=== PATIENT | male | born 1960 | race African-American/Black ===

== ENCOUNTER 2018-10-19 22:47 | Emergency (ER) | payer SELFPAY ==
[~2018-10-19] VITALS: Ht 188 cm; Wt 96.0 kg
[2018-10-20] MEDS ORDERED: HYDROCODONE/ACETAMINOPHEN 5/325MG TABLET PO ONE (01:15)
[2018-10-20 02:50] VITALS: BP 102/61
== END 2018-10-20 03:33 | disposition home or self-care (01) ==
LOC: ER 22:47
DX: M25.562 Pain in left knee (principal); M54.2 Cervicalgia; R51 Headache; F17.200 Nicotine dependence, unspecified, uncomplicated; I10 Essential (primary) hypertension; Z88.6 Allergy status to analgesic agent
CPT/HCPCS: 73564; 99283; L1830; Z7610